=== PATIENT | male | born 1960 | race Caucasian/White ===

== ENCOUNTER 2017-07-10 11:18 | Observation (INO) | payer BC ==
[~2017-07-10] VITALS: Ht 180.3 cm; Wt 95.5 kg
[2017-07-10 11:27] VITALS: BP 128/75; PULSE 71; RESP 20; TEMP 98.6; O2SAT 98
[2017-07-10] MEDS ORDERED: SODIUM CHLOR 0.9% 1000 ML INJ 1,000 ML IV ONE (12:00)
[2017-07-10] MEDS ORDERED: ONDANSETRON HCL 4 MG/2 ML VIAL IV PUSH ONE ×2 (12:00→14:45)
[2017-07-10] MEDS ORDERED: HYDROmorphone HCL PF 1 MG/ML VIAL IV PUSH ONE ×2 (12:00→12:30)
[2017-07-10] MEDS ORDERED: DEXA4TAB PO (12:01)
[2017-07-10] MEDS ORDERED: NAPR220C22 PO (12:01)
[2017-07-10] MEDS ORDERED: DULC5TAB PO (12:01)
[2017-07-10] MEDS ORDERED: DILA4TAB10 PO (12:01)
[2017-07-10] MEDS ORDERED: SENN1TAB PO (12:01)
[2017-07-10 12:26] LABS: AUTOMATED NEUTROPHIL # 11.9 TH/MM3 (1.8-7.7); BASOPHIL % 0.2 % (0.0-2.0); EOSINOPHIL % 0.1 % (0.0-4.0); HEMATOCRIT 44.2 % (39.0-51.0); HEMOGLOBIN 14.9 GM/DL (13.0-17.0); LYMPH % 4.8 % (9.0-44.0); LYMPHOCYTE # 0.6 TH/MM3 (1.0-4.8); MEAN CELL VOLUME 93.5 FL (80.0-100.0); MEAN CORPUSCULAR HEMOGLOBIN 31.6 PG (27.0-34.0); MEAN CORPUSCULAR HGB CONC 33.7 % (32.0-36.0); MEAN PLATELET VOLUME 7.8 FL (7.0-11.0); MONO % 5.1 % (0.0-8.0); MONOCYTE # 0.7 TH/MM3 (0-0.9); NEUT % 89.8 % (16.0-70.0); PLATELET COUNT 307 TH/MM3 (150-450); RED BLOOD COUNT 4.72 MIL/MM3 (4.50-5.90); RED CELL DISTRIBUTION WIDTH 13.7 % (11.6-17.2); WHITE BLOOD COUNT 13.2 TH/MM3 (4.0-11.0)
[2017-07-10] MEDS ORDERED: HYDROmorphone HCL PF 2 MG/ML VIAL IV PUSH ONE ×2 (12:30→14:45)
[2017-07-10 12:44] LABS: ALBUMIN 3.7 GM/DL (3.4-5.0); AST (GOT) 19 U/L (15-37); BICARBONATE 29.2 MEQ/L (21.0-32.0); BLOOD UREA NITROGEN 15 MG/DL (7-18); CALCIUM 9.2 MG/DL (8.5-10.1); CHLORIDE 105 MEQ/L (98-107); CREATININE 0.84 MG/DL (0.60-1.30); GLOMERULAR FILTRATION RATE 94 ML/MIN (>89); GLUCOSE,RANDOM 108 MG/DL (74-106); SODIUM (NA) 138 MEQ/L (136-145)
[2017-07-10 12:46] LABS: ALT (GPT) 23 U/L (12-78)
[2017-07-10 12:48] LABS: ALKALINE PHOSPHATASE 211 U/L (45-117); TOTAL BILIRUBIN ADULT 0.5 MG/DL (0.2-1.0); TOTAL PROTEIN 8.4 GM/DL (6.4-8.2)
--- NOTE | 2017-07-10 14:43 | PD ---
HPI Chief Complaint: Pain: Acute or Chronic Time Seen by Provider: 11:38 Travel History International Travel<30 days: No Contact w/Intl Traveler<30days: No Traveled to known affect area: No History of Present Illness HPI Patient is a 57-year-old male with history of pancreatic cancer that has metastasized to his back, who comes in complaining of severe back pain. He says he has been following at an outside facility, and has been told to come and see Dr. Clark for radiation. He says he has an appointment with him this week, but the pain is so severe, he cannot wait. He does have oral Dilaudid at home that he has been taking, but has not been helping. He says it just makes him feel nauseous and he has been unable to eat because of this. He denies fever chills. He denies weakness of his legs or any numbness or tingling. Severity is mild to moderate. PFSH Past Medical History Cancer: Yes (PANCREATIC ) Chemotherapy: Yes (pancreatic ca) Past Surgical History Other Surgery: Yes (BILE DUCT STENT ) Social History Alcohol Use: No Tobacco Use: No Substance Use: No Allergies-Medications (Allergen,Severity, Reaction): Coded Allergies: citalopram (Verified Allergy, Unknown, 07/10/17) Reported Meds & Prescriptions Reported Meds & Active Scripts Active Reported Aleve (Naproxen Sodium) 220 Mg Capsule 220-440 Mg PO Q12HR PRN Dulcolax DR (Bisacodyl) 5 Mg Tabdr 10 Mg PO DAILY Dilaudid (Hydromorphone HCl) 4 Mg Tab 4 Mg PO Q6H PRN 7 Days Senna-Plus (Sennosides-Docusate Sodium) 8.6-50 Mg Tab 1 Tab PO HS Dexamethasone 4 Mg Tab 4 Mg PO BID 14 Days Review of Systems Except as stated in HPI: all other systems reviewed are Neg General / Constitutional: No: Fever, Chills Eyes: No: Blurred Vision HENT: No: Headaches, Lightheadedness Cardiovascular: No: Chest Pain or Discomfort Respiratory: No: Shortness of Breath Gastrointestinal: Positive: Nausea Musculoskeletal: Positive: Pain Neurologic: No: Weakness, Sensory Disturbance Physical Exam Narrative GENERAL: Awake and alert, in no acute distress. SKIN: Focused skin assessment warm/dry. No wounds or signs of infection. HEAD: Atraumatic. Normocephalic. EYES: Pupils equal and round. No scleral icterus. ENT: No nasal bleeding or discharge. Mucous membranes pink and moist. NECK: Trachea midline. No JVD. CARDIOVASCULAR: Regular rate and rhythm. No murmur appreciated. RESPIRATORY: No accessory muscle use. Clear to auscultation. Breath sounds equal bilaterally. GASTROINTESTINAL: Abdomen soft, non-tender, nondistended. MUSCULOSKELETAL: No obvious deformities. No clubbing. No cyanosis. No edema. No spinal tenderness. NEUROLOGICAL: Awake and alert. No obvious cranial nerve deficits. Motor grossly within normal limits. Normal speech. No saddle anesthesia. PSYCHIATRIC: Appropriate mood and affect; insight and judgment normal. Data Data Last Documented VS Vital Signs Date Time Temp Pulse Resp B/P (MAP) Pulse Ox O2 Delivery O2 Flow Rate FiO2 07/10/17 14:49 65 18 111/63 (79) 99 Room Air 07/10/17 11:27 98.6 Orders Orders Iv Access Insert/Monitor (07/10/17 11:49) Complete Blood Count With Diff (07/10/17 11:49) Comprehensive Metabolic Panel (07/10/17 11:49) Ondansetron Inj (Zofran Inj) (07/10/17 12:00) Sodium Chlor 0.9% 1000 Ml Inj (Ns 1000 M (07/10/17 12:00) Hydromorphone Pf Inj (Dilaudid Pf Inj) (07/10/17 12:30) Hydromorphone Pf Inj (Dilaudid Pf Inj) (07/10/17 12:30) Hydromorphone Pf Inj (Dilaudid Pf Inj) (07/10/17 14:45) Ondansetron Inj (Zofran Inj) (07/10/17 14:45) Admit Order (Ed Use Only) (07/10/17 ) Labs Laboratory Tests Test 07/10/17 12:05 White Blood Count 13.2 TH/MM3 Red Blood Count 4.72 MIL/MM3 Hemoglobin 14.9 GM/DL Hematocrit 44.2 % Mean Corpuscular Volume 93.5 FL Mean Corpuscular Hemoglobin 31.6 PG Mean Corpuscular Hemoglobin Concent 33.7 % Red Cell Distribution Width 13.7 % Platelet Count 307 TH/MM3 Mean Platelet Volume 7.8 FL Neutrophils (%) (Auto) 89.8 % Lymphocytes (%) (Auto) 4.8 % Monocytes (%) (Auto) 5.1 % Eosinophils (%) (Auto) 0.1 % Basophils (%) (Auto) 0.2 % Neutrophils # (Auto) 11.9 TH/MM3 Lymphocytes # (Auto) 0.6 TH/MM3 Monocytes # (Auto) 0.7 TH/MM3 Eosinophils # (Auto) 0.0 TH/MM3 Basophils # (Auto) 0.0 TH/MM3 CBC Comment DIFF FINAL Differential Comment Blood Urea Nitrogen 15 MG/DL Creatinine 0.84 MG/DL Random Glucose 108 MG/DL Total Protein 8.4 GM/DL Albumin 3.7 GM/DL Calcium Level 9.2 MG/DL Alkaline Phosphatase 211 U/L Aspartate Amino Transf (AST/SGOT) 19 U/L Alanine Aminotransferase (ALT/SGPT) 23 U/L Total Bilirubin 0.5 MG/DL Sodium Level 138 MEQ/L Potassium Level 4.2 MEQ/L Chloride Level 105 MEQ/L Carbon Dioxide Level 29.2 MEQ/L Anion Gap 4 MEQ/L Estimat Glomerular Filtration Rate 94 ML/MIN MDM Medical Decision Making Medical Screen Exam Complete: Yes Emergency Medical Condition: Yes Differential Diagnosis Metastatic lesions versus nerve pain versus anemia versus dehydration Narrative Course Patient is a 57 year old male who comes in complaining of severe pain from metastatic lesions to his spine. IV established, labs sent. Labs shows WBC of 13.2, no infectious symptoms. Given IVF, zofran, dilaudid. He says the Dilaudid helped for a little, but then the pain came back. Given a second dose of Dilaudid. He will be admitted for further management. Diagnosis Primary Impression: Intractable pain Additional Impression: Metastatic cancer to spine Admitting Information Admitting Physician Requests: Admit Ella Rollins MD Jul 10, 2017 14:42
[2017-07-10 14:49] VITALS: BP 111/63; PULSE 65; RESP 18; O2SAT 99
[2017-07-10 16:00] VITALS: BP 117/65; PULSE 51; RESP 16; TEMP 96.1
[2017-07-10] MEDS ORDERED: ZOLPIDEM TARTRATE 5 MG TAB PO PRN (16:30)
[2017-07-10] MEDS ORDERED: NALOXONE HCL 0.4 MG/ML AMP IV PUSH PRN (16:30)
[2017-07-10] MEDS ORDERED: NALOXONE HCL 2 MG/2 ML VIAL IV PUSH PRN (16:30)
[2017-07-10] MEDS ORDERED: BISACODYL 10 MG SUPP RECTAL PRN (16:30)
[2017-07-10] MEDS ORDERED: SENNOSIDES 8.6 MG TAB PO PRN (16:30)
[2017-07-10] MEDS ORDERED: SODIUM CHLORIDE 0.9% FLUSH 10 ML FLUSH IV FLUSH PRN (16:30)
[2017-07-10] MEDS ORDERED: LACTULOSE SYRUP 20 GM/30 ML CUP PO PRN (16:30)
[2017-07-10] MEDS ORDERED: ACETAMINOPHEN 325 MG TAB PO PRN (16:30)
[2017-07-10] MEDS ORDERED: MAGNESIUM HYDROXIDE SUSP 30 ML CUP PO PRN (16:30)
[2017-07-10] MEDS ORDERED: ONDANSETRON HCL 4 MG/2 ML VIAL IVP PRN (16:30)
[2017-07-10] MEDS: ENOXAPARIN SODIUM 40 MG/0.4 ML SYRINGE SQ SCH (17:55)
[2017-07-10] MEDS: KETOROLAC TROMETHAMINE 30 MG/ML (IVP) VIAL IV PUSH SCH (17:56)
[2017-07-10] MEDS ORDERED: REMOVE OLD PATCH T-DERMAL SCH (18:00)
[2017-07-10] MEDS ORDERED: fentaNYL 50 MCG/HR PATCH T-DERMAL SCH (18:00)
--- NOTE | 2017-07-10 18:07 | HHI.HP ---
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 He states that he was diagnosed with this cancer 4-1/2 years ago and has been through a treatment to alleviate pain using radioactive cell marker type chemo. This alleviated a lumbar pain he had in the past. Previous scans show that he has a lesion from T8 through T12 that was not compressing the spine 2 weeks ago but based on symptoms may be compressing it now. His pain at home has been inadequately controlled with 4 mg doses of p.o. Dilaudid. He has never tried long-acting pain medication options. He was referred to Dr. garcia by [facility] in hopes to see him to discuss the option of radiation versus repeating his previous treatment of radioactive cell specific chemotherapy. Review of Systems Constitutional: COMPLAINS OF: Fatigue, DENIES: Weight gain, Weight loss, Chills Eyes: DENIES: Blurred vision, Diplopia, Eye pain, Vision loss, Photosensitivity Respiratory: DENIES: Apneas, Cough, Snoring, Wheezing, Hemoptysis Cardiovascular: DENIES: Chest pain, Palpitations, Syncope Gastrointestinal: DENIES: Abdominal pain, Black stools, Bloody stools, Constipation, Diarrhea, Nausea, Vomiting Musculoskeletal: COMPLAINS OF: Joint pain, Back pain, DENIES: Muscle aches, Stiffness, Joint Swelling, Neck pain Neurologic: DENIES: Abnormal gait, Headache, Localized weakness, Paresthesias, Seizures, Speech Problems, Tremor, Poor Balance Psychiatric: DENIES: Anxiety, Confusion, Mood changes, Depression, Hallucinations Past Family Social History Past Medical History No other medical issues besides the pancreatic cancer Past Surgical History Denies any major surgeries Allergies: Coded Allergies: citalopram (Verified Allergy, Unknown, 07/10/17) Family History No disease patterns and his family Social History Rarely drinks alcohol, denies cigarette use Physical Exam Vital Signs Vital Signs Date Time Temp Pulse Resp B/P (MAP) Pulse Ox O2 Delivery O2 Flow Rate FiO2 07/10/17 17:16 07/10/17 14:49 65 18 111/63 (79) 99 Room Air 07/10/17 12:12 72 18 07/10/17 11:27 98.6 71 20 128/75 (92) 98 Physical Exam GENERAL: This is a well-nourished, well-developed patient, in no apparent distress. SKIN: No rashes, ecchymoses or lesions. Cool and dry. HEAD: Atraumatic. Normocephalic. No temporal or scalp tenderness. EYES: Pupils equal round and reactive. Extraocular motions intact. No scleral icterus. No injection or drainage. ENT: Nose without bleeding, purulent drainage or septal hematoma. Throat without erythema, tonsillar hypertrophy or exudate. Uvula midline. Airway patent. NECK: Trachea midline. No JVD or lymphadenopathy. Supple, nontender, no meningeal signs. CARDIOVASCULAR: Regular rate and rhythm without murmurs, gallops, or rubs. RESPIRATORY: Clear to auscultation. Breath sounds equal bilaterally. No wheezes , rales, or rhonchi. GASTROINTESTINAL: Abdomen soft, non-tender, nondistended. No hepato-splenomegaly , or palpable masses. No guarding. MUSCULOSKELETAL: Extremities without clubbing, cyanosis, or edema. No joint tenderness, effusion, or edema noted. No calf tenderness. Negative Homans sign bilaterally. NEUROLOGICAL: Awake and alert. Cranial nerves II through XII intact. Motor and sensory grossly within normal limits. Five out of 5 muscle strength in all muscle groups. Normal speech. Laboratory Laboratory Tests Test 07/10/17 12:05 White Blood Count 13.2 Red Blood Count 4.72 Hemoglobin 14.9 Hematocrit 44.2 Mean Corpuscular Volume 93.5 Mean Corpuscular Hemoglobin 31.6 Mean Corpuscular Hemoglobin Concent 33.7 Red Cell Distribution Width 13.7 Platelet Count 307 Mean Platelet Volume 7.8 Neutrophils (%) (Auto) 89.8 Lymphocytes (%) (Auto) 4.8 Monocytes (%) (Auto) 5.1 Eosinophils (%) (Auto) 0.1 Basophils (%) (Auto) 0.2 Neutrophils # (Auto) 11.9 Lymphocytes # (Auto) 0.6 Monocytes # (Auto) 0.7 Eosinophils # (Auto) 0.0 Basophils # (Auto) 0.0 CBC Comment DIFF FINAL Differential Comment Blood Urea Nitrogen 15 Creatinine 0.84 Random Glucose 108 Total Protein 8.4 Albumin 3.7 Calcium Level 9.2 Alkaline Phosphatase 211 Aspartate Amino Transf (AST/SGOT) 19 Alanine Aminotransferase (ALT/SGPT) 23 Total Bilirubin 0.5 Sodium Level 138 Potassium Level 4.2 Chloride Level 105 Carbon Dioxide Level 29.2 Anion Gap 4 Estimat Glomerular Filtration Rate 94 Result Diagram: 07/10/17 1205 07/10/17 1205 Caprini VTE Risk Assessment Caprini VTE Risk Assessment: Mod/High Risk (score >= 2) Caprini Risk Assessment Model Point Value = 1 Point Value = 2 Point Value = 3 Point Value = 5 Age 41-60 Minor surgery BMI > 25 kg/m2 Swollen legs Varicose veins or History of unexplained or recurrent spontaneous Oral contraceptives or hormone replacement Sepsis (< 1 month) Serious lung disease, including pneumonia (< 1 month) Abnormal pulmonary function Acute myocardial infarction Congestive heart failure (< 1 month) History of inflammatory bowel disease Medical patient at bed rest Age 61-74 Arthroscopic surgery Major open surgery (> 45 min) Laparoscopic surgery (> 45 min) Malignancy Confined to bed (> 72 hours) Immobilizing plaster cast Central venous access Age >= 75 History of VTE Family history of VTE Factor V Leiden Prothrombin [id number] Lupus anticoagulant Anticardiolipin antibodies Elevated serum homocysteine Heparin-induced thrombocytopenia Other congenital or acquired thrombophilia Stroke (< 1 month) Elective arthroplasty Hip, pelvis, or leg fracture Acute spinal cord injury (< 1 month) Prophylaxis Regimen Total Risk Factor Score Risk Level Prophylaxis Regimen 0-1 Low Early ambulation 2 Moderate Order ONE of the following: *Sequential Compression Device (SCD) *Heparin 5000 units SQ BID 3-4 Higher Order ONE of the following medications: *Heparin 5000 units SQ TID *Enoxaparin/Lovenox 40 mg SQ daily (WT < 150 kg, CrCl > 30 mL/min) *Enoxaparin/Lovenox 30 mg SQ daily (WT < 150 kg, CrCl > 10-29 mL/min) *Enoxaparin/Lovenox 30 mg SQ BID (WT < 150 kg, CrCl > 30 mL/min) AND/OR *Sequential Compression Device (SCD) 5 or more Highest Order ONE of the following medications: *Heparin 5000 units SQ TID (Preferred with Epidurals) *Enoxaparin/Lovenox 40 mg SQ daily (WT < 150 kg, CrCl > 30 mL/min) *Enoxaparin/Lovenox 30 mg SQ daily (WT < 150 kg, CrCl > 10-29 mL/min) *Enoxaparin/Lovenox 30 mg SQ BID (WT < 150 kg, CrCl > 30 mL/min) AND *Sequential Compression Device (SCD) Assessment and Plan Assessment and Plan Intractable pain Failure of Dilaudid 4 mg p.o. every 6 hours to relieve his pain at home We will begin fentanyl patch 50 mcg every 3 days IV Dilaudid is working thus far for relief on an as needed basis Consult palliative medicine to assist with medication selection and dosing Pancreatic cancer Patient was told by [facility] that he was not a candidate for a new FDA treatment and is therefore seeking a second option of radiation Dr. Garcia (oncology) was consulted to discuss these options with him DVT prophylaxis Isaias Briscoe MD Jul 10, 2017 18:07
[2017-07-10 20:00] VITALS: BP 112/56; PULSE 61; RESP 16; TEMP 97.6; O2SAT 97
[2017-07-10] MEDS: SODIUM CHLORIDE 0.9% FLUSH 10 ML FLUSH IV FLUSH SCH (21:05)
[2017-07-10] MEDS: DOCUSATE SODIUM 50 MG/SENNA 8.6 MG TAB PO SCH (21:05)
[2017-07-11] VITALS (7 sets, daily range): BP systolic 97–122; BP diastolic 52–74; PULSE 60–87; RESP 16–20; TEMP 96.3–98.2; O2SAT 97–98
[2017-07-11] MEDS: KETOROLAC TROMETHAMINE 30 MG/ML (IVP) VIAL IV PUSH SCH ×4 (00:55→18:24)
[2017-07-11] MEDS: HYDROmorphone HCL PF 2 MG/ML VIAL IV PUSH PRN ×2 (04:18→11:28)
[2017-07-11] MEDS: DOCUSATE SODIUM 50 MG/SENNA 8.6 MG TAB PO SCH ×3 (08:35→21:44)
[2017-07-11] MEDS: SODIUM CHLORIDE 0.9% FLUSH 10 ML FLUSH IV FLUSH SCH ×2 (08:47→21:44)
--- NOTE | 2017-07-11 14:24 | PD.CONS ---
Consult Service Palliative Care Consult Requested By Dr. Kervin MD. Primary Care Physician Unknown Reason for Consultation a. To assist with evaluation and management of symptoms including: Pain, constipation, debility. b. To assist medical decision maker(s) with: better understanding of current medical conditions; weighing benefits/burdens of medical treatment options; making medical treatment decisions. . HPI History of Present Illness Mr. 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 Patient presented to emergency room on 07/10/17 endorsing intractable pain. Patient being followed at [facility] in [place], patient resident of [place]. He was referred to Dr. garcia for evaluation of palliative radiation, however, reports that he was unable to wait for appointment given worsening back pain. Patient with home regimen of oral Dilaudid which has been taking every 4-6 hours [id number] for the past 2 weeks. Patient endorsing poor appetite and nausea for the past 2 weeks. ED laboratory workup revealing WBC 13.2, Hgb 14.9, platelet count 307. Sodium 138 , potassium 4.2, BUN/creatinine 15/0.84. Liver enzymes within normal limits. Alk phos 211. Patient was admitted for further management. No medical records available at the time of my visit. Past medical history obtained from patient and his Celeste. Patient reports that he was diagnosed with neuroendocrine carcinoma on November 2012. Patient reports that he was treated at [facility] in [place] followed by [facility] in [facility]. Patient reports that he received radioactive cell specific chemotherapy/radioimmuno therapy, last treatment receiving on September 2015. Patient with progression of disease to include liver metastasis and bony metastasis affecting L1, S1 and T8-T12. Patient reports that he was being followed by [facility] in [facility] where he was referred to Dr. garcia for palliative radiation to spine. Patient resides in [facility]. He is being followed by oncology Dr. Stephanie Thomas, however, no systemic therapy/chemotherapy planned. Patient with intractable thoracic spine pain, worsening within the past 2 weeks. He reports that he was recently imaged which reports negative for pathological fractures or cord compression. Home therapy to include hydromorphone 4 mg p.o. every 4-6 hours and dexamethasone 4 mg twice daily. Patient reports that he stopped taking dexamethasone secondary to restlessness and insomnia. He reports was taking dexamethasone later in the evening. Pain described as well localized to the thoracic spine, exacerbated with physical exertion/movement. No tingling or numbness of extremities reported. Alleviated with current plan to include a fentanyl 50 mcg patch and Dilaudid 2 mg IV as needed. Patient endorsing poor appetite, reports a 20 pound weight loss within the past month. He reports was taking Marinol 5 mg daily, however, stopped taking it approximately 2-3 weeks ago. In this first visit, reviewed the role of palliative care in advanced illness in regards to symptom management as well as support surrounding goals of care and advance care planning. Patient and receptive to my visit. Obtained past medical history and psychosocial history. Reviewed events leading to this hospitalization, clinical course and current medical management. Patient and tells me that goal of therapy is for appropriate pain management, looking for patient discharge home to follow-up with local oncologist Dr. Thomas in [facility]. They are hoping to start palliative radiation therapy as soon as possible for pain management. Patient confirms that there is no plans for further systemic therapy. They verbalized understanding that disease is metastatic and not curable. Discussed pain and symptom management recommendations, see plan. Patient and receptive to palliative care follow -ups for pain and symptom management. . Function/Cognitive Trajectory Patient independent with all ADLs prior to this hospitalization. No cognitive decline reported or observed. Residing with in private home. . Review of Systems Constitutional: COMPLAINS OF: Weight loss, Change in appetite, Pain, Generalized weakness Endocrine: DENIES: Heat/cold intolerance Eyes: DENIES: Eye pain, Vision loss Ears, nose, mouth, throat: DENIES: Hearing loss, Throat pain, Running Nose, Epistaxis Respiratory: DENIES: Cough, Sputum production Cardiovascular: DENIES: Chest pain, Lower Extremity Edema Gastrointestinal: COMPLAINS OF: Constipation, Nausea, DENIES: Black stools, Vomiting, Difficulty Swallowing Genitourinary: DENIES: Urinary incontinence, Hematuria Musculoskeletal: COMPLAINS OF: Back pain, DENIES: Stiffness, Joint Swelling Integumentary: DENIES: Abnormal pigmentation, Rash, Excessive dryness Hematologic/Lymphatics: DENIES: Bruising, Prolonged bleed w/ proced Immunologic/Allergic: DENIES: Eczema Neurologic: DENIES: Abnormal gait, Seizures, Tremor, Poor Balance Psychiatric: COMPLAINS OF: Anxiety, Depression, DENIES: Confusion, Hallucinations Past Family Social History Coded Allergies: citalopram (Verified Allergy, Unknown, 07/10/17) Past Medical History Neuroendocrine pancreatic cancer with metastasis to liver and bone Carpal tunnel . Past Surgical History Stent placement to the biliary duct Right wrist carpal tunnel surgery Right shoulder orthopedic surgery . Reported Medications Aleve (Naproxen Sodium) 220 Mg Capsule 220-440 Mg PO Q12HR PRN Dulcolax DR (Bisacodyl) 5 Mg Tabdr 10 Mg PO DAILY Dilaudid (Hydromorphone HCl) 4 Mg Tab 4 Mg PO Q6H PRN 7 Days Senna-Plus (Sennosides-Docusate Sodium) 8.6-50 Mg Tab 1 Tab PO HS Dexamethasone 4 Mg Tab 4 Mg PO BID 14 Days . Current Medications Medications (Trade) Dose Ordered Sig/Alice Route Start Time Stop Time Status Last Admin (NS Flush) 2 ml UNSCH PRN IV FLUSH 07/10/17 16:30 (NS Flush) 2 ml BID IV FLUSH 07/10/17 21:00 07/11/17 08:47 (Tylenol) 650 mg Q4H PRN PO 07/10/17 16:30 (Zofran Inj) 4 mg Q6H PRN IVP 07/10/17 16:30 07/11/17 11:36 (Ambien) 5 mg HS PRN PO 07/10/17 16:30 (Lovenox Inj) 40 mg Q24H SQ 07/10/17 18:00 07/10/17 17:55 (Narcan Inj) 0.4 mg UNSCH PRN IV PUSH 07/10/17 16:30 (Lola-Colace) 1 tab BID PO 07/10/17 21:00 07/11/17 08:47 (Milk Of Magnesia Liq) 30 ml Q12H PRN PO 07/10/17 16:30 (Senokot) 17.2 mg Q12H PRN PO 07/10/17 16:30 (Dulcolax Supp) 10 mg DAILY PRN RECTAL 07/10/17 16:30 07/11/17 11:28 (Lactulose Liq) 30 ml DAILY PRN PO 07/10/17 16:30 07/11/17 08:51 (Duragesic 50 Mcg Patch.72 Hr) 1 patch Q3D T-DERMAL 07/10/17 18:00 4/15/18 17:55 (Toradol Inj) 30 mg Q6HR IV PUSH 07/10/17 18:00 07/11/17 11:28 (Dilaudid Pf Inj) 2 mg Q4H PRN IV PUSH 07/10/17 16:30 07/11/17 11:28 (Narcan Inj) 2 mg UNSCH PRN IV PUSH 07/10/17 16:30 Miscellaneous Information 1 Q3D T-DERMAL 07/10/17 18:00 Family History No family history of cancer. Patient has 2 children who are alive and well. . Substance Use Tobacco: Sporadically smoked cigarettes. Quit 7 years ago. Alcohol: Socially. Quit 3 weeks ago. Prescription med abuse: None. Illicits: None. . Psychosocial History Patient originally from [place]. Moved to [place] approximately 5 years ago. to current for the past 15 years. Patient has 2 children, one in [place] and one in [place]. 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 . Spiritual/Cultural Factors No scientology affiliation. . Living Will: Never completed Health Care Surrogate: Never completed Durable Power of Endodontics Dentist: Never completed Health Care Surrogate(s): No advance directives completed. As per [place] statue, healthcare proxy decision making falls to patient's . . Today's verbally stated goals: Full code. Patient seeking aggressive management to include palliative radiation. . Family/friends goals: Patient's Sarah fully supportive of patient's wishes. . Ethical and Legal Issues No ethical legal issues identified. . Physical Exam Vital Signs Date Time Temp Pulse Resp B/P (MAP) Pulse Ox O2 Delivery O2 Flow Rate FiO2 07/11/17 12:03 18 07/11/17 12:03 18 07/11/17 12:00 98.2 69 18 117/71 (86) 98 07/11/17 08:00 98.0 60 18 116/61 (79) 98 07/11/17 06:31 100/52 (68) 07/11/17 04:00 96.3 66 16 97/53 (68) 97 07/11/17 00:00 96.4 62 17 102/59 (73) 97 07/10/17 20:00 97.6 61 16 112/56 (74) 97 07/10/17 17:16 07/10/17 16:00 96.1 51 16 117/65 (82) 07/10/17 14:49 65 18 111/63 (79) 99 Room Air Exam CONSTITUTIONAL/GENERAL: This is an adequately nourished patient, in no apparent distress. TUBES/LINES/DRAINS: PIV's. SKIN: No jaundice, rashes, or lesions. No wounds seen anteriorly. Skin temperature appropriate. Not diaphoretic. HEAD: Atraumatic. Normocephalic. EYES: Pupils equal and round and reactive. Extraocular motions intact. No scleral icterus. No injection or drainage. Fundi not examined. ENT: Hearing grossly normal. Nose without bleeding or purulent drainage. Moist oral mucosa. NECK: Trachea midline. Supple, nontender. CARDIOVASCULAR: Regular rate and rhythm without murmurs, gallops, or rubs. No JVD. Peripheral pulses symmetric. RESPIRATORY/CHEST: Symmetric, unlabored respirations. Clear to auscultation. Breath sounds equal bilaterally. No wheezes, rales, or rhonchi. GASTROINTESTINAL: Abdomen soft, non-tender, nondistended. No guarding. Bowel sounds present. GENITOURINARY: Without palpable bladder distension. MUSCULOSKELETAL: Extremities without clubbing, cyanosis, or edema. No calf tenderness. No mottling or clubbing. NEUROLOGICAL: Awake and alert. Motor and sensory grossly within normal limits. Follows commands. Cognitively sharp. Moves all extremities. PSYCHIATRIC: No obvious anxiety/depression. no apparent hallucinations or other psychotic thought process. . Diagnostic Tests Laboratory Laboratory Tests Test 07/10/17 12:05 White Blood Count 13.2 TH/MM3 (4.0-11.0) Red Blood Count 4.72 MIL/MM3 (4.50-5.90) Hemoglobin 14.9 GM/DL (13.0-17.0) Hematocrit 44.2 % (39.0-51.0) Mean Corpuscular Volume 93.5 FL (80.0-100.0) Mean Corpuscular Hemoglobin 31.6 PG (27.0-34.0) Mean Corpuscular Hemoglobin Concent 33.7 % (32.0-36.0) Red Cell Distribution Width 13.7 % (11.6-17.2) Platelet Count 307 TH/MM3 (150-450) Mean Platelet Volume 7.8 FL (7.0-11.0) Neutrophils (%) (Auto) 89.8 % (16.0-70.0) Lymphocytes (%) (Auto) 4.8 % (9.0-44.0) Monocytes (%) (Auto) 5.1 % (0.0-8.0) Eosinophils (%) (Auto) 0.1 % (0.0-4.0) Basophils (%) (Auto) 0.2 % (0.0-2.0) Neutrophils # (Auto) 11.9 TH/MM3 (1.8-7.7) Lymphocytes # (Auto) 0.6 TH/MM3 (1.0-4.8) Monocytes # (Auto) 0.7 TH/MM3 (0-0.9) Eosinophils # (Auto) 0.0 TH/MM3 (0-0.4) Basophils # (Auto) 0.0 TH/MM3 (0-0.2) CBC Comment DIFF FINAL Differential Comment Blood Urea Nitrogen 15 MG/DL (7-18) Creatinine 0.84 MG/DL (0.60-1.30) Random Glucose 108 MG/DL (74-106) Total Protein 8.4 GM/DL (6.4-8.2) Albumin 3.7 GM/DL (3.4-5.0) Calcium Level 9.2 MG/DL (8.5-10.1) Alkaline Phosphatase 211 U/L (45-117) Aspartate Amino Transf (AST/SGOT) 19 U/L (15-37) Alanine Aminotransferase (ALT/SGPT) 23 U/L (12-78) Total Bilirubin 0.5 MG/DL (0.2-1.0) Sodium Level 138 MEQ/L (136-145) Potassium Level 4.2 MEQ/L (3.5-5.1) Chloride Level 105 MEQ/L (98-107) Carbon Dioxide Level 29.2 MEQ/L (21.0-32.0) Anion Gap 4 MEQ/L (5-15) Estimat Glomerular Filtration Rate 94 ML/MIN (>89) Result Diagram: 07/10/17 1205 07/10/17 1205 Patient/Family Conference Present at Family Conference: Patient and Celeste. Family Conference Time (mins): 48 Family Conference Location: Bedside Issues Discussed: * Palliative care role, purpose, approach * Additional medical, psychosocial, and spiritual history * Patients general health, functional status, and cognitive changes in the months leading up to the current hospitalization * Patient/family understanding of the current medical problems * Patients goals of care as best understood from advance directives and/or conversations and/or values * Current medical treatment options and benefits/burdens of those options * Questions answered to the best of my ability * Palliative care contact information provided. . Assessment and Plan Disease Oriented Problem List: (1) Neuroendocrine carcinoma of pancreas (2) Liver metastasis (3) Bone metastasis (4) Weight loss Symptom Scale: (1) Intractable pain 0-10 Scale: 8 (2) Poor appetite 0-10 Scale: Unable to quantify (3) Nausea 0-10 Scale: Unable to quantify Pertinent Non-Medical Issues Psychosocial: Patient originally from [place]. Moved to [place] approximately 5 years ago. to current for the past 15 years. Patient has 2 children, one in [place] and one in [place]. 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 Spiritual: No scientology affiliation. Legal: No advance directives completed. Ethical issues impacting care: No ethical issues identified. . Important Contacts Sarah . . Prognosis Mr. 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 Patient presented to emergency room on 07/10/17 endorsing intractable pain. Patient reports that he was diagnosed with neuroendocrine carcinoma on November 2012, s/p radioactive cell specific chemotherapy/ radioimmuno therapy. Patient with progression of disease to include liver metastases and multiple sites of bony metastasis. No plans for additional chemotherapy/systemic therapy. Plan for palliation radiation to bony metastasis for pain/symptom management. Patient at high risk for further complications, continued decline and . Pending medical record for prognostication, however, evidence suggests that overall 5 year survival rate in the setting of metastatic neuroendocrine pancreatic cancer is approximately 42%. Patient at high risk for developing significant symptom burden. . Code Status: Full Code Plan * CODE STATUS: Full code. Risks, benefits and limitations of CPR, intubation and mechanical ventilation discussed with patient and . * HEALTHCARE DECISION-MAKING: Patient participating in medical decision making. He has a good understanding of his clinical condition and retains the ability to weight benefits versus burden of treatment options. No advance directives completed. As per [place] statue, healthcare proxy decision making falls to patient's Celeste. Patient declined completion of advance directives at this time. * GOALS OF CARE: Goal of therapy is for palliation of symptoms and prolongation of survival. Patient verbalized understanding that his metastatic disease is not curable, looking into palliative radiation for symptom management of intractable pain related to multiple spinal lesions. Patient is to follow-up with his oncologist Dr.Padma Thomas in [facility] as well as [facility] in [place]. Additional systemic therapy/chemotherapy not planned. * SYMPTOMS: = Intractable pain: Localized to lumbar and thoracic spine. Pending medical records, patient reports metastatic bony lesions to L1, T8-12. Pain reported as sharp, well localized. Exacerbated by movement or physical exertion, alleviated by Dilaudid IV. Home regimen to include hydromorphone 4 mg p.o. q4- 6 hours PRN and dexamethasone 4 mg twice daily. Patient reports that he was recently imaged, negative for pathological fractures or cord compression. Has been seen by radiation oncology, pending recommendations. Current treatment plan to include fentanyl 50 mcg patch, Toradol 30 mg every 6 hours around-the- clock and hydromorphone 2 mg IV as needed. Patient has received a total of 4 hydromorphone 2 mg IV doses in the past 24 hours. Reports that the pain is much more controlled, allowing him to move and to eat. Discussed recommendations, patient in agreement to have hydromorphone oral dose available in anticipation to home discharge, reserve hydromorphone IV only when oral hydromorphone is not effective. = Nausea: Secondary to burden of disease, pain. Patient reports that Zofran 4 mg is effective. Will reinstate dexamethasone for pain and nausea management. = Poor appetite, weight loss: Exacerbated by pain. Patient taking Marinol 5 mg daily at home. However, reports that he stopped around 2-3 weeks ago. Patient reports that appetite has much improved since pain is much more control. Patient not wishing to continue Marinol at this time. Dexamethasone will also help with appetite. = Constipation: Exacerbated by opioid use. Last bowel movement 2 days ago. Lactulose, Senokot and Dulcolax suppository available as needed. Received lactulose and suppository today. * PALLIATIVE CARE RECOMMENDATIONS: * Continue fentanyl transdermal patch 50mcg q72 hours * ADD Hydromorphone 4mg PO q6hr PRN pain -in anticipation to home discharge * Continue hydromorphone 2 mg IV q4hr PRN for pain not controlled with oral hydromorphone * ADD dexamethasone 2mg BID, AM dose at 9:00 AM, PM dose at 15:00. ++no systemic immunotherapy or chemotherapy planned. * Case discussed with Dr. Young. Orders entered. * Recommendations discussed at length with patient and , both in agreement with the above. Patient was advised to follow-up with local oncology, Dr. Thomas for outpatient pain management. * Palliative care contact information has been provided to patient and family. * Palliative care will continue to follow up for further clarification of goals of care as patient's clinical course continues to evolve. . Time Spent Total Floor Time (mins): 83 (Total time to include review of available medical records, past medical history, physical exam, goals of care conversation with patient and , case discussion with attending.) >50% Counseling/Coord of Care: Yes Thank you for the opportunity to participate in the care of Mr. Guerin. Attestation To help prompt me to consider important information that might be impacting today's encounter and assessment, information from prior notes written by myself or my colleagues may have been "brought forward" into today's note. My signature on this note, however, is an attestation that I personally performed the exam, history, and/or decision-making noted today, and, unless otherwise indicated, the interactions with patient, family, and staff as well as the review of records all occurred today. I also attest that the listed assessment and stated plan reflect my best clinical judgment today based on the combination of historical information, prior notes, and today's exam/ interactions. When time spent is documented, it refers only to time spent today by the signer, or if indicated, combined time spent today by collaborating physician/nurse practitioner. Miladis Polanco Jul 11, 2017 14:24
[2017-07-11] MEDS ORDERED: HYDROmorphone HCL 4 MG TAB PO PRN (14:30)
[2017-07-11] MEDS ORDERED: PILL SPLITTER OTHER PRN (14:45)
[2017-07-11] MEDS ORDERED: DEXAMETHASONE 0.5 MG TAB PO SCH (15:00)
--- NOTE | 2017-07-11 16:59 | HHI.PR ---
Subjective Remarks Follow-up back pain. States back pain is improved on narcotic patch and IV Dilaudid. Complaining of constipation denies nausea, vomiting and abdominal pain. Discussed with nursing adenoma I am disliked Objective Vitals Vital Signs Date Time Temp Pulse Resp B/P (MAP) Pulse Ox O2 Delivery O2 Flow Rate FiO2 07/11/17 12:03 18 07/11/17 12:03 18 07/11/17 12:00 98.2 69 18 117/71 (86) 98 07/11/17 08:00 98.0 60 18 116/61 (79) 98 07/11/17 06:31 100/52 (68) 07/11/17 04:00 96.3 66 16 97/53 (68) 97 07/11/17 00:00 96.4 62 17 102/59 (73) 97 07/10/17 20:00 97.6 61 16 112/56 (74) 97 07/10/17 17:16 I/O 07/10/17 07/10/17 07/10/17 07/11/17 07/11/17 07/11/17 07:00 15:00 23:00 07:00 15:00 23:00 Intake Total 480 ml Balance 480 ml Intake Oral 480 ml # Voids 2 Result Diagram: 07/10/17 1205 07/10/17 1205 Objective Remarks GENERAL: This is a well-nourished, well-developed patient, in no apparent distress. SKIN: No rashes, ecchymoses or lesions. Cool and dry. CARDIOVASCULAR: Regular rate and rhythm without murmurs, gallops, or rubs. RESPIRATORY: Clear to auscultation. Breath sounds equal bilaterally. No wheezes , rales, or rhonchi. GASTROINTESTINAL: Abdomen soft, non-tender, nondistended. No guarding. MUSCULOSKELETAL: Extremities without clubbing, cyanosis, or edema. No joint tenderness, effusion, or edema noted. No calf tenderness. Negative Homans sign bilaterally. NEUROLOGICAL: Awake and alert. Cranial nerves II through XII intact. Motor and sensory grossly within normal limits. Five out of 5 muscle strength in all muscle groups. Normal speech. Procedures none A/P Problem List: (1) Neuroendocrine carcinoma of pancreas ICD Code: C7A.8 - Other malignant neuroendocrine tumors Assessment and Plan Intractable pain. Improving on fentanyl patch and IV Dilaudid. Discussed with palliative care, restart Dilaudid p.o. and dexamethasone to prepare for discharge. Patient had simulation to start radiation therapy Pancreatic cancer Patient was told by [facility] that he was not a candidate for a new FDA treatment and is therefore seeking a second option of radiation Dr. Clark (oncology) was consulted to discuss these options with him Constipation. Add MiraLAX and will give magnesium citrate think this on has lifespan of 1 day now I want to throw it is like radicular symptoms 1 DVT prophylaxis Lovenox Discharge Planning Dc in 1-2 days Sean Banda MD Jul 11, 2017 16:59
[2017-07-11] MEDS ORDERED: POLYETHYLENE GLYCOL 17 GM PKG PO SCH (17:00)
[2017-07-11] MEDS ORDERED: MAGNESIUM CITRATE SOLN 300 ML BTL PO ONE (17:00)
[2017-07-11] MEDS ORDERED: FENT50T T-DERMAL (17:01)
[2017-07-11] MEDS ORDERED: SENN1TAB PO (17:17)
--- NOTE | 2017-07-11 17:18 | HHI.DCPOC ---
Discharge Care Plan Diagnosis: (1) Neuroendocrine carcinoma of pancreas Your Health Problems Are: Difficulty with ADL Exercise Tolerance Goals to Promote Your Health * To prevent worsening of your condition and complications * To maintain your health at the optimal level Directions to Meet Your Goals Take your medications as prescribed Follow your dietary instruction Follow activity as directed Keep your appointments as scheduled Take your immunizations and boosters as scheduled If your symptoms worsen call your PCP, if no PCP go to Urgent Care Center or Emergency Room Smoking is Dangerous to Your Health. Avoid second hand smoke Call the 24-hour hour crisis hotline for domestic abuse at Sean Banda MD Jul 11, 2017 17:18
[2017-07-11] MEDS: ENOXAPARIN SODIUM 40 MG/0.4 ML SYRINGE SQ SCH (18:24)
[2017-07-11] MEDS ORDERED: HYDROmorphone HCL 2 MG TAB PO PRN (20:00)
[2017-07-12] VITALS: BP 103/58; PULSE 63; RESP 20; TEMP 96.6; O2SAT 97
[2017-07-12] MEDS: KETOROLAC TROMETHAMINE 30 MG/ML (IVP) VIAL IV PUSH SCH ×2 (00:21→06:59)
[2017-07-12 04:00] VITALS: BP 119/62; PULSE 69; RESP 20; TEMP 96.5; O2SAT 98
[2017-07-12 08:00] VITALS: BP 130/68; PULSE 72; RESP 18; TEMP 98.5; O2SAT 99
--- NOTE | 2017-07-12 13:05 | HHI.DS ---
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 He states that he was diagnosed with this cancer 4-1/2 years ago and has been through a treatment to alleviate pain using radioactive cell marker type chemo. This alleviated a lumbar pain he had in the past. Previous scans show that he has a lesion from T8 through T12 that was not compressing the spine 2 weeks ago but based on symptoms may be compressing it now. His pain at home has been inadequately controlled with 4 mg doses of p.o. Dilaudid. He has never tried long-acting pain medication options. He was referred to Dr. garcia by [facility] in hopes to see him to discuss the option of radiation versus repeating his previous treatment of radioactive cell specific chemotherapy. CBC/BMP: 07/10/17 1205 07/10/17 1205 Significant Findings Laboratory Tests Test 07/10/17 12:05 White Blood Count 13.2 TH/MM3 (4.0-11.0) Neutrophils (%) (Auto) 89.8 % (16.0-70.0) Lymphocytes (%) (Auto) 4.8 % (9.0-44.0) Neutrophils # (Auto) 11.9 TH/MM3 (1.8-7.7) Lymphocytes # (Auto) 0.6 TH/MM3 (1.0-4.8) Random Glucose 108 MG/DL (74-106) Total Protein 8.4 GM/DL (6.4-8.2) Alkaline Phosphatase 211 U/L (45-117) Anion Gap 4 MEQ/L (5-15) PE at Discharge GENERAL: This is a well-nourished, well-developed patient, in no apparent distress. SKIN: No rashes, ecchymoses or lesions. Cool and dry. CARDIOVASCULAR: Regular rate and rhythm without murmurs, gallops, or rubs. RESPIRATORY: Clear to auscultation. Breath sounds equal bilaterally. No wheezes , rales, or rhonchi. GASTROINTESTINAL: Abdomen soft, non-tender, nondistended. No guarding. MUSCULOSKELETAL: Extremities without clubbing, cyanosis, or edema. No joint tenderness, effusion, or edema noted. No calf tenderness. Negative Homans sign bilaterally. NEUROLOGICAL: Awake and alert. Cranial nerves II through XII intact. Motor and sensory grossly within normal limits. Five out of 5 muscle strength in all muscle groups. Normal speech. Hospital Course Intractable pain. Improving on fentanyl patch and po/IV Dilaudid. Has not required IV narc. Ct dexamethasone to prepare for discharge. Patient had simulation to start radiation therapy patient can be done outpatient Pancreatic cancer Patient was told by [facility] that he was not a candidate for a new FDA treatment and is therefore seeking a second option of radiation Dr. Garcia (oncology) was consulted to discuss these options with him Constipation. Improved continue bowel regimen Leukocytosis likely reactive. DVT prophylaxis Lovenox Pt Condition on Discharge: Stable Discharge Disposition: Discharge Home Discharge Time: > 30 minutes Discharge Instructions DIET: Follow Instructions for: As Tolerated, No Restrictions Activities you can perform: Regular-No Restrictions Activities to Avoid: Driving Follow up Referrals: Oncology - [address] Chris Oncology/Hematology - 1 Week PCP Follow-up - 1 Week New Medications: Fentanyl Patch 72 HR (Duragesic Patch 72 HR) 50 Mcg/Hr Patch 1 PATCH T-DERMAL Q3D for Pain Management, #3 PATCH Changed Medications: Sennosides-Docusate Sodium (Senna-Plus) 8.6-50 Mg Tab 1 TAB PO BID for Constipation, #60 TAB 0 Refills (Changed from: HS) Continued Medications: Bisacodyl DR (Dulcolax DR) 5 Mg Tabdr 10 MG PO DAILY, #30 TAB 0 Refills Dexamethasone (Dexamethasone) 4 Mg Tab 4 MG PO BID for 14 Days, #28 TAB 0 Refills Hydromorphone (Dilaudid) 4 Mg Tab 4 MG PO Q6H PRN for PAIN for 7 Days, #28 TAB 0 Refills Naproxen Sodium (Aleve) 220 Mg Capsule 220-440 MG PO Q12HR PRN for MILD PAIN Sean Banda MD Jul 12, 2017 13:05
== END 2017-07-12 10:17 | disposition home or self-care (01) ==
LOC: NEPE 11:18 → NEDA 15:10 → INTOOBSV 15:10 → N03B 17:12
PROVIDERS: ADMIT Internal Medicine; ATTEND Internal Medicine
DX: G89.3 Neoplasm related pain (acute) (chronic) (principal); C25.9 Malignant neoplasm of pancreas, unspecified; C79.51 Secondary malignant neoplasm of bone; C78.7 Secondary malignant neoplasm of liver and intrahepatic bile duct; K59.00 Constipation, unspecified; R63.0 Anorexia; D72.829 Elevated white blood cell count, unspecified; R11.0 Nausea; Z87.891 Personal history of nicotine dependence
CPT/HCPCS: 80053; 85025; 96361; 96372; 96374; 96375; 96376; 97161; 99285; G0378; G8987; G8988; J1170; J1650; J1885; J2405; J7030; J8540